=== PATIENT | female | born 1960 | race Caucasian/White ===

== ENCOUNTER → 2022-10-05 14:55 | Outpatient (BNVA) | payer BC, SELFPAY | PROVIDERS: Visit Provider Podiatrist Foot & Ankle Surgery | DX: S93.311A Subluxation of tarsal joint of right foot, initial encounter (principal); S93.312A Subluxation of tarsal joint of left foot, initial encounter; M21.42 Flat foot [pes planus] (acquired), left foot; M21.41 Flat foot [pes planus] (acquired), right foot; X58.XXXA Exposure to other specified factors, initial encounter | CPT/HCPCS: 73630 ==